=== PATIENT | female | born 1975 | race Caucasian/White ===

== ENCOUNTER 2016-06-12 13:43 | Emergency (ER) | payer OTHER ==
[2016-06-12] MEDS ORDERED: NORMAL SALINE 10 ML SYRINGE FLUSH IVP PRN (13:57)
--- NOTE | 2016-06-12 14:09 | EKG ---
[address] [address] Measurements Intervals [place] Rate: 84 P: -6 RI: 155 QRS: 33 QRSD: 88 T: 38 QT: 380 QTc: 421 Interpretive Statements SINUS RHYTHM LOW QRS VOLTAGE IN PRECORDIAL LEADS No previous ECG available for comparison Electronically Signed On 06-12-16 16:51:46 MDT by Jason Gar [email or web address]
[2016-06-12 14:10] VITALS: RESP 16; TEMP 97.6
[2016-06-12 14:12] LABS: BASOPHILS # (AUTO) 0.02 10*3/UL; BASOPHILS % (AUTO) 0.3 % (0-1); EOSINOPHILS # (AUTO) 0.11 10*3/UL; EOSINOPHILS % (AUTO) 1.6 % (0-8); HEMATOCRIT 42.4 % (37.0-47.0); LYMPHOCYTES # (AUTO) 2.34 10*3/uL; MEAN CORPUSCULAR VOLUME 93.8 FL (81-99); MEAN PLATELET VOLUME 8.9 FL (7.4-12.2); MONOCYTES # (AUTO) 0.58 10*3/UL (0.3-0.8); MONOCYTES % (AUTO) 8.6 % (5-15); NEUTROPHILS # (AUTO) 3.67 10*3/UL; NEUTROPHILS % (AUTO) 54.6 % (50-80); RED BLOOD COUNT 4.52 10^6/uL (4.20-5.40)
[2016-06-12 14:16] LABS: PLATELET MORPHOLOGY COMMENT NORMAL MORPHOLOGY (NORM); RBC MORPHOLOGY COMMENT NORMAL MORPHOLOGY (NORM); WBC MORPHOLOGY COMMENT NORMAL MORPHOLOGY (NORM)
[2016-06-12 14:21] LABS: BLOOD UREA NITROGEN 14 mg/dL (7-22); CALCIUM 8.4 mg/dL (8.7-10.7); EST GLOMERULAR FILTRATION > 60 (>60 ml/min/1.73m(2)); MAGNESIUM 1.5 mg/dL (1.6-2.4); SERUM ALBUMIN 4.1 g/dL (3.5-4.8)
[2016-06-12] MEDS ORDERED: Magnesium Sulfate 2gm (Premix) 2 GM in Premix 1 BAG IV ONE (14:25)
[2016-06-12] MEDS ORDERED: Sodium Chloride 0.9% 1,000 ML PRIMARY IV ONE (14:27)
--- NOTE | 2016-06-12 14:47 | DI ---
XR CXR 1VW,06/12/2016 1:57 PM: Clinical History: Hypertension and left arm tingling. Previous Exam: January 27, 2016 Findings: A single frontal radiograph of the chest is obtained, and demonstrate clear lungs. The cardiomediasti num and bony thorax are unremarkable. Impression: Normal chest.
--- NOTE | 2016-06-12 23:08 | PDOC ---
General Adult HPI - General Chief Complaint: General Medical Stated Complaint: HIGH BLOOD PRESSURE, ARM TINGLING Date Seen by Provider: 06/12/16 Time Seen by Provider: 13:55 Source: POSITIVE: Patient Exam Limitations: POSITIVE: No limitations Nurse's Notes Reviewed & Considered: Yes - History of Present Illness Initial Comment: The patient is a 41-year-old female who is evaluated in the emergency department with elevated blood pressure. She states that she she was seen at the doctor's office about a week ago and her blood pressure was elevated at that time. She has continue to monitor her blood pressure over the past week and has consistently elevated levels between the 140s to 160s over 90s to 100s. She reports that today she has had onset of some tingling in her left arm and left neck. She denies any current chest pain. She reports that she had just had some sharp intermittent pains in her chest off and on the past week or so. She denies any increase shortness of breath, headache, change in vision or any other associated symptoms. She does have a history of alcohol use however denies any recent heavy use, she did have a couple of drinks a couple of days ago. She had contacted her physician's office and they recommended that she come here for evaluation. Have you received a tetanus shot in the past 10 years?: No - Patient Home Medications Home Medications: Home Medications Bupropion HCl [Wellbutrin Sr] 150 mg ORAL BID tab 03/24/11 Ziprasidone HCl [Geodon] 60 mg PO DAILY 03/24/11 Ibuprofen 800 mg PO QID #120 tab 11/22/14 Carisoprodol [Soma] 350 mg PO TID #30 tab 12/04/14 Multivitamin Tab [Thera Tab] 1 tab PO DAILY tab 07/29/15 Omeprazole 1 tab PO DAILY tab 08/07/15 Estradiol 1 tab PO DAILY #30 tab 04/06/16 Lisinopril 10 mg PO DAILY #30 tab 06/12/16 - Patient Allergies Allergies/Adverse Reactions: Allergies Allergy/AdvReac Type Severity Reaction Status Date / Time No Known Allergies Allergy Verified 06/12/16 13:52 Past Medical History - heen HEENT History: Denies History Cardiovascular History: Denies History Respiratory History: Denies History Gastrointestinal History: GERD Genitourinary History: Denies History Endocrine History: Denies History Musculoskeletal History: Denies History Prosthesis or Implant: No Neurological History: Denies History Blood Disorders: Denies History Psychiatric History: Depression, Anxiety Disorders History of Sexually Transmitted Diseases: No Female Reproductive History: Hysterectomy Obstetrical History: Delivery Cancer History: Other (please comment) In Past Year Been Physically Harmed or Verbally Threatened: No History of MDRO: No History of Other Communicable Diseases: No Tobacco Use: Current Every Day Smoker Alcohol Use: Occasionally Substance Use Type: None Previous Surgical History: Yes Type / Date of Surgery: LEEP, Tonsillectomy, Cholecystectomy, abdominal laproscopic, , TOTAL HYST Significant Family History: No pertinent family hx Past Medical History Reviewed: Reviewed - No Changes ROS - Limitations ROS Limitations: No Limitations Constitution: DENIES: Chills, Fever Cardiovascular: REPORTS: Chest Pain (Some intermittent sharp chest pains over the past week), Blood Pressure Problem (Elevated that pressure for at least the last week). DENIES: Edema Respiratory: DENIES: Hurts To Breathe, Shortness Of Breath Neurological: REPORTS: Tingling (Left arm). DENIES: Dizziness, Numbness, Fainting Gastrointestinal: DENIES: Nausea, Vomitting Eyes: REPORTS: Denies Symptoms ENT: REPORTS: Denies Symptoms Skin: DENIES: Rash General Adult Exam - General Appearance General Appearance: POSITIVE: Alert, Cooperative, No Acute Distress - HEENT HEENT: POSITIVE: Head Inspection Nml, Eyes Inspection Nml, Ears Inspection Nml, Pharynx Inspect. Nml, PERRL, EOMI - Neck Neck: POSITIVE: Normal Inspection. NEGATIVE: Lymphadenopathy - Respiratory Respiratory: POSITIVE: No Respiratory Distress, Breath Sounds Normal - Cardiovascular Cardiovascular: POSITIVE: Regular Rate & Rhythm, No Murmur Peripheral Pulses: Dorsalis-pedis (R): 2+, Dorsalis-pedis (L): 2+ - Abdomen Abdomen: Soft: (All Quadrants), Denies Tenderness: (All Quadrants), No Distention: (All Quadrants), Distention: (All Quadrants) - Skin Skin: POSITIVE: Normal Color General Adult Progress - Results Reviewed by me Xrays/CTs/US Reviewed by me: Yes Discussed with Radiologist: Yes Radiology Findings: Chest x-ray is normal per radiologist. Lab Results Reviewed: Yes Lab Results:: Laboratory Results 06/12/16 Range/Units 14:02 WBC 6.73 (4.8-10.8) 10^3/uL RBC 4.52 (4.20-5.40) 10^6/uL Hgb 14.0 (12.0-16.0) g/dL Hct 42.4 (37.0-47.0) % MCV 93.8 (81-99) FL MCH 31.0 (27-31) PG MCHC 33.0 (33-37) g/dL RDW Std Deviation 46.6 (39-50) fL RDW Coeff of Armond 14.1 (11.5-14.5) % Plt Count 212 (140-350) 10*3/uL MPV 8.9 (7.4-12.2) FL Immature Gran % (Auto) 0.1 (0-5) % Neut % (Auto) 54.6 (50-80) % Lymph % (Auto) 34.8 (10-50) % [place] % (Auto) 8.6 (5-15) % Eos % (Auto) 1.6 (0-8) % Baso % (Auto) 0.3 (0-1) % Immature Gran # (Auto) 0.01 10*3/UL Neut # (Auto) 3.67 10*3/UL Lymph # (Auto) 2.34 10*3/uL [place] # (Auto) 0.58 (0.3-0.8) 10*3/UL Eos # (Auto) 0.11 10*3/UL Baso # (Auto) 0.02 10*3/UL WBC Morphology Comment Normal morphology (NORM) Plt Morphology Comment Normal morphology (NORM) RBC Morph Comment Normal morphology (NORM) D-Dimer 0.35 (0.00-0.59) mg/L Sodium 138 (135-145) meq/L Potassium 4.8 (3.8-5.2) meq/L Chloride 104 (98-112) meq/L Carbon Dioxide 24 (23-33) meq/L Anion Gap 10 (5-20) BUN 14 (7-22) mg/dL Creatinine 0.8 (0.50-1.20) mg/dL Estimated GFR > 60 (>60 ml/min/1.73m(2)) BUN/Creatinine Ratio 17.50 (6-20) Glucose 94 (78-110) mg/dL Calculated Osmolality 286.0 (267-292) mOsm/kg Calcium 8.4 L (8.7-10.7) mg/dL Magnesium 1.5 L (1.6-2.4) mg/dL Total Bilirubin 0.7 (0.3-1.2) mg/dL AST 55 H (8-39) IU/L ALT 44 (9-52) IU/L Alkaline Phosphatase 73 (38-126) IU/L Troponin I < 0.012 (< 0.040) ng/mL Total Protein 7.1 (6.1-8.0) g/dL Albumin 4.1 (3.5-4.8) g/dL Globulin 3.0 (2.50-4.10) g/dL Albumin/Globulin Ratio 1.30 (1.3-2.0) mg/g EKG Interpreted/Reviewed By Me:: Yes EKG Interpretation:: POSITIVE: Normal Sinus Rhythm, Normal Rate, Normal Intervals, Normal QRS, Normal ST/T - Patient's Progress MDM / ED Course: The patient's initial blood pressure was in the 160s over 109. Her initial EKG shows normal sinus rhythm with no acute changes. Blood work was obtained and did reveal a low magnesium at 1.5. She did receive an infusion of magnesium 2 g IV. Blood pressure during magnesium infusion had come down into the 140s over 80s. The remainder of her blood work including d-dimer and troponin were normal. Her kidney function and other electrolytes were normal. Her blood pressure has been consistently elevated recently. She was started on lisinopril 10 mg daily. She will continue to monitor blood pressure and will follow-up with primary care in 1 week. She is advised return to the emergency room if any worsening or change in symptoms especially any chest pain, shortness of breath, headache, numbness or weakness in her extremities, any worsening or change in symptoms. - Consult Counseled: POSITIVE: Patient, RE: Lab Results, RE: Radiology Results, RE: DX, RE : Need for F/U Patient Care Time - Estimated PCT Patient Care Time (In Minutes): 30 Vital Signs - VS Reviewed Vital Signs Reviewed: Yes Discharge Clinical Impression: Hypomagnesemia, HTN (hypertension) Discharge Disposition: Discharged to Home Condition: Stable Prescriptions / Orders: Lisinopril 10 mg PO DAILY #30 tab Additional Instructions: The EKG on your heart appeared normal here in the emergency room. Your blood work did not reveal any evidence of heart attack or blood clot. Her magnesium level was a little bit low and this was replaced why you're here in the emergency room. Her blood pressure was elevated on arrival and came down after administration of magnesium. Because her blood pressure has been elevated consistently recently you were started on a blood pressure medication. Start lisinopril 10 mg daily, can be taken either at night or in the morning. Recommend returning to the emergency room if he develops any chest pain, shortness of breath, any worsening or change in symptoms. Recommend that you follow-up with your primary care provider in one week. Follow Up With: JONO GÓMEZ FNP [Primary Care Provider] -
== END 2016-06-12 15:40 | disposition home or self-care (01) ==
LOC: ER 13:43
DX: E83.42 Hypomagnesemia (principal); I10 Essential (primary) hypertension; R07.9 Chest pain, unspecified; R20.2 Paresthesia of skin
CPT/HCPCS: 71010; 80053; 83735; 84484; 85025; 85379; 93005; 93010; 96365; 99284; J3475

== ENCOUNTER → 2016-07-16 | Outpatient (CLI) | payer OTHER | LOC: LAB 14:40 | PROVIDERS: ATTEND Nurse Practitioner Family | DX: E83.42 Hypomagnesemia (principal); I10 Essential (primary) hypertension | CPT/HCPCS: 36415; 83735 ==

== ENCOUNTER 2018-04-30 18:18 | Inpatient (IN) ==
[2018-04-30] MEDS ORDERED: Sodium Chloride 0.9% 1,000 ML PRIMARY IV ONE (18:28)
[2018-04-30] MEDS ORDERED: MORPHINE SULFATE 2 MG/1 ML IVP ONE (18:28)
[2018-04-30] MEDS ORDERED: FAMOTIDINE 20 MG/2 ML VIAL IVP ONE (18:28)
[2018-04-30] MEDS ORDERED: ONDANSETRON 4 MG/2 ML VIAL IVP ONE (18:28)
[2018-04-30] MEDS ORDERED: LORazepam 2 MG/1 ML VIAL IVP ONE (18:29)
[2018-04-30 18:34] LABS: BASOPHILS # (AUTO) 0.03 10*3/UL; BASOPHILS % (AUTO) 0.3 % (0-1); EOSINOPHILS # (AUTO) 0.05 10*3/UL; EOSINOPHILS % (AUTO) 0.5 % (0-8); Hematocrit [HCT] 39.5 % (37.0-47.0); Hemoglobin [HGB] 14.5 g/dL (12.0-16.0); LYMPHOCYTES # (AUTO) 1.55 10*3/uL; MEAN CORPUSCULAR HEMOGLOBIN 34.6 PG (27-31); MEAN CORPUSCULAR HGB CONC 36.7 g/dL (33-37); MEAN CORPUSCULAR VOLUME 94.3 FL (81-99); MEAN PLATELET VOLUME 8.8 FL (7.4-12.2); MONOCYTES # (AUTO) 1.02 10*3/UL (0.3-0.8); MONOCYTES % (AUTO) 9.4 % (5-15); NEUTROPHILS # (AUTO) 8.23 10*3/UL; NEUTROPHILS % (AUTO) 75.5 % (50-80); RED BLOOD COUNT 4.19 10^6/uL (4.20-5.40)
[2018-04-30 18:35] LABS: PLATELET MORPHOLOGY COMMENT NORMAL MORPHOLOGY (NORM); RBC MORPHOLOGY COMMENT NORMAL MORPHOLOGY (NORM); WBC MORPHOLOGY COMMENT NORMAL MORPHOLOGY (NORM)
[2018-04-30 18:54] LABS: BLOOD UREA NITROGEN 14 mg/dL (7-22)
[2018-04-30 18:56] LABS: SERUM ALBUMIN 3.7 g/dL (3.5-4.8)
[2018-04-30] MEDS ORDERED: Sodium Chloride 0.9% 1,000 ML, Magnesium Sulfate 2gm (Premix) 50 ML with Multivitamin I... IV ONE ×5 (18:58)
[2018-04-30 19:12] LABS: LIPASE 4090 IU/L (23-300)
[2018-04-30 19:13] LABS: BILIRUBIN,URINE NEGATIVE (NEG); CLARITY,URINE CLEAR (CLEAR); COLOR,URINE YELLOW (Y); GLUCOSE, URINE (UA) NEGATIVE (NEG); OCCULT BLOOD,URINE NEGATIVE (NEG); PH,URINE 5.5 (5.0-8.5); PROTEIN,URINE TRACE mg/dl (NEG); UROBILINOGEN,URINE 0.2 EU/dL (0.2)
[2018-04-30 19:14] LABS: URINE SAMPLE TYPE CLEAN CATCH URINE
[2018-04-30] MEDS ORDERED: MORPHINE SULFATE 4 MG/1 ML IVP ONE (20:28)
--- NOTE | 2018-04-30 20:28 | DI ---
EXAM: CT Abdomen and Pelvis With Intravenous Contrast CLINICAL HISTORY: Pain TECHNIQUE: Axial computed tomography images of the abdomen and pelvis with intravenous contrast. COMPARISON: CT abdomen and pelvis dated 07/27/2015 FINDINGS: Lung bases: Lower thorax demonstrates atelectasis and or scarring. ABDOMEN: Liver: Decreased attenuation of the liver suggesting hepatic steatosis. Gallbladder and bile ducts: Gallbladder is surgically absent. Pancreas: Pancreatic and peripancreatic edema suggesting acute pancreatitis. Spleen: Unremarkable. Adrenals: Unremarkable. Kidneys and ureters: Unremarkable. Stomach and bowel: Unremarkable. PELVIS: Appendix: Appendix was not visualized. Bladder: Unremarkable. Reproductive: Unremarkable as visualized. ABDOMEN and PELVIS: Intraperitoneal space: Free fluid within the lower abdomen and pelvis. Bones/joints: No acute fracture. No dislocation. Soft tissues: Unremarkable. Vasculature: Unremarkable. No abdominal aortic aneurysm. Lymph nodes: Unremarkable. IMPRESSION: Pancreatic and peripancreatic edema suggesting acute pancreatitis. No pancreatic necrosis, pseudocyst, pseudoaneurysm, or splenic vein thrombosis.
[2018-04-30] MEDS ORDERED: LIDOCAINE W/ SODIUM BICARB 0.5 ML SYR SUBD PRN (21:00)
[2018-04-30] MEDS ORDERED: LORazepam Inj(ETOH withdrawal) 2 MG/ML VIAL IVP PRN (21:00)
[2018-04-30] MEDS ORDERED: LORazepam 1 mg tab (ETOH withdrawal) PO PRN (21:00)
[2018-04-30] MEDS ORDERED: ONDANSETRON 4 MG/2 ML VIAL IVP PRN (21:00)
[2018-04-30] MEDS ORDERED: CALCIUM CARBONATE 500 MG (TUMS) CHEWABLE TABLET PO PRN (21:00)
[2018-04-30] MEDS ORDERED: DOCUSATE 100 MG CAPSULE PO PRN (21:00)
[2018-04-30] MEDS: ACETAMINOPHEN 325 MG TABLET PO PRN (21:44)
[2018-04-30 22:01] LABS: CHOL/HDL RATIO 2.32 RATIO (0-4.0)
--- NOTE | 2018-04-30 22:02 | PDOC ---
HPI - History of Present Illness Date of Service: 04/30/18 Time of Service: 21:57 Chief Complaint: Abdominal pain History of Present Illness: This very pleasant 43-year-old female that suffers from depression, post medics stress disorder, chronic neck pain, hormone replacement therapy status post total abdominal hysterectomy with ovarian removal as well due to endometriosis, amongst other medical conditions, who comes in stating that she developed sudden onset abdominal pain earlier this morning. She mostly isolates that in her midabdomen. She says is been very severe, did not respond to Pepto-Bismol, Gas- X, or Motrin. She states that she had a similar episode a couple of years ago. It was not quite as bad at that point. She denies any nausea or vomiting. She denied any diarrhea. She came into the emergency room and a CT scan showed pancreatic edema consistent with acute pancreatitis. Notably, she is on estrogen. She drinks alcohol, upwards of 10 shots per week. She has had her gallbladder removed. She does not know her cholesterol status. She states she's had chills, but no fever. She states her last alcoholic beverage was last night. Her blood alcohol level was negative in the emergency room. Past Medical History Medical History: Depression, chronic alcohol use, tremor, chronic neck pain secondary to an accident at age 15, endometriosis, hormone replacement therapy Surgical History: 1. Total abdominal hysterectomy with bilateral salpingo- oophorectomy. 2. Cholecystectomy Pertinent Family History: Mother due to COPD complications. Past Social History: Patient does not smoke. She drinks alcohol, admits up to 10 shots per week. 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 She has 3 children and sees biologic) that are healthy and 2 stepchildren. Tobacco Use: Never Smoker In the Past 12 Months, Have Used or Abuse Any of the Following Substance: None Alcohol Use: Heavy Medication / Allergies Home Medications: Home Medications Medication Instructions Recorded Confirmed Type Bupropion HCl [Wellbutrin Sr] 150 mg ORAL BID tab 03/24/11 04/30/18 History Multivitamin Tab [Thera Tab] 1 tab PO DAILY tab 07/29/15 04/30/18 Rx Omeprazole 1 tab PO DAILY tab 08/07/15 04/30/18 History Ibuprofen 800 mg PO QID #120 tab 06/18/16 04/30/18 Rx Magnesium 400 mg PO PRN tab 07/21/16 04/30/18 History Ziprasidone HCl [Geodon] 60 mg PO DAILY cap 07/21/16 04/30/18 History carisoprodol 350 mg tablet 350 mg PO TID #30 tab 06/02/17 04/30/18 Rx estradiol 0.5 mg tablet 0.5 mg PO DAILY #90 tab 10/22/17 04/30/18 Rx losartan 100 mg tablet 100 mg PO QDAY #30 tab 11/22/17 04/30/18 Rx Propranolol HCl 20 mg PO DAILY 04/30/18 04/30/18 History Allergies/Adverse Reactions: Allergies Allergy/AdvReac Type Severity Reaction Status Date / Time No Known Allergies Allergy Verified 04/30/18 18:45 Review of Systems - Review of Systems All Systems: Reviewed & No Additional Complaints Except as Stated (I did a 12 point review systems and it was negative other than that discussed below and in the history of present illness.) - Musculoskeletal Musculoskeletal: REPORTS: Neck Pain (Gets regular chiropractic therapy. This is chronic. She has had x-rays in the chiropractic office. States she had MRI scan in [place] in over a decade ago but does not recall results.) - Neurological Neurologic: REPORTS: Tremors (Chronic bilateral tremors of unclear etiology), O ther - Psychiatric Psychiatric: REPORTS: Depressed (States she has done well on Geodon therapy. This is despite black box warnings. Although she is younger than typical age at Geodon carries his black box warning for.) Exam - Vitals Vital Signs: Vital Signs Temperature 98.7 F Temperature Source Oral Pulse Rate [Pulse Oximeter 82 Left] Pulse Rate 89 Respiratory Rate 20 Blood Pressure [Right Arm] 148/85 Blood Pressure 147/77 Pulse Ox 92 Oxygen Delivery Method Room Air Height 5 ft 2 in Weight 183 lb - General General Appearance: No Acute Distress, Cooperative - Head Head Exam: Normal Inspection, Normocephalic, Atraumatic - Eye Eye Exam: POSITIVE: No Scleral Icterus - ENT ENT Exam: POSITIVE: Mucous Membranes Moist - Respiratory Respiratory Exam: POSITIVE: Clear to Auscultation - Bilaterally, Breathing Non Labored, Normal to Percussion and Palpation - Cardiovascular Cardiovascular Exam: POSITIVE: RRR, No Murmur, No Clicks, No Gallops, No Rubs, No JVD - GI/Abdominal GI/Abdominal Exam: POSITIVE: Normal Bowel Sounds, Non Distended, Soft Additional GI/Abdominal Exam Details: Tender mid abdomen. - Rectal Rectal Exam: POSITIVE: Deferred - External Exam: POSITIVE: Deferred Exam: POSITIVE: Deferred - Extremities Extremities Exam: POSITIVE: No Clubbing Present, No Edema Present, No Cyanosis Present - Back Back Exam: POSITIVE: No CVA Tenderness - Neurological Neurological Exam: POSITIVE: Alert, Oriented x 3, No Facial Droop, Speech Intact / Clear, Moves All Extremities Equally - Psychiatric Psychiatric Exam: POSITIVE: Flat Affect Results - Labs CBC and BMP: 04/30/18 18:28 04/30/18 18:28 Additional Lab Results: Laboratory Results 3 04/30/18 04/30/18 04/30/18 18:28 18:28 18:28 WBC 10.89 H RBC 4.19 L Hgb 14.5 Hct 39.5 MCV 94.3 MCH 34.6 H MCHC 36.7 RDW Std Deviation 41.9 RDW Coeff of Armond 12.4 Plt Count 366 H MPV 8.8 Immature Gran % (Auto) 0.1 Neut % (Auto) 75.5 Lymph % (Auto) 14.2 [place] % (Auto) 9.4 Eos % (Auto) 0.5 Baso % (Auto) 0.3 Immature Gran # (Auto) 0.01 Neut # (Auto) 8.23 Lymph # (Auto) 1.55 [place] # (Auto) 1.02 H Eos # (Auto) 0.05 Baso # (Auto) 0.03 WBC Morphology Comment Normal morphology Plt Morphology Comment Normal morphology RBC Morph Comment Normal morphology Sodium 136 Potassium 4.3 Chloride 99 Carbon Dioxide 28 Anion Gap 9 BUN 14 Creatinine 0.8 Estimated GFR > 60 BUN/Creatinine Ratio 17.50 Glucose 103 Calculated Osmolality 282.0 Calcium 8.5 L Magnesium 0.5 L* Total Bilirubin 0.9 AST 72 H ALT 33 Alkaline Phosphatase 98 C-Reactive Protein 1.0 H Total Protein 6.6 Albumin 3.7 Globulin 2.9 Albumin/Globulin Ratio 1.20 L Amylase 295 H Lipase 4090 H* Ur Collection Type Urine Color Urine Clarity Urine pH Ur Specific [place] Urine Protein Urine Glucose (UA) Urine Ketones Urine Occult Blood Urine Nitrate Urine Bilirubin Urine Urobilinogen Ur Leukocyte Esterase Ur Culture Indicated? Serum Alcohol < 10 04/30/18 19:02 WBC RBC Hgb Hct MCV MCH MCHC RDW Std Deviation RDW Coeff of Armond Plt Count MPV Immature Gran % (Auto) Neut % (Auto) Lymph % (Auto) [place] % (Auto) Eos % (Auto) Baso % (Auto) Immature Gran # (Auto) Neut # (Auto) Lymph # (Auto) [place] # (Auto) Eos # (Auto) Baso # (Auto) WBC Morphology Comment Plt Morphology Comment RBC Morph Comment Sodium Potassium Chloride Carbon Dioxide Anion Gap BUN Creatinine Estimated GFR BUN/Creatinine Ratio Glucose Calculated Osmolality Calcium Magnesium Total Bilirubin AST ALT Alkaline Phosphatase C-Reactive Protein Total Protein Albumin Globulin Albumin/Globulin Ratio Amylase Lipase Ur Collection Type Clean catch urine Urine Color Yellow Urine Clarity Clear Urine pH 5.5 Ur Specific [place] 1.025 Urine Protein Trace Urine Glucose (UA) Negative Urine Ketones Negative Urine Occult Blood Negative Urine Nitrate Negative Urine Bilirubin Negative Urine Urobilinogen 0.2 Ur Leukocyte Esterase Negative Ur Culture Indicated? Culture not set Serum Alcohol - Imaging Status: Image Reviewed by Me (CT scan of the abdomen and pelvis was done. I looked at the films. There appears to be some pancreatic inflammation. I reviewed the radiology report) Assessment and Plan - Patient Problems (1) Acute pancreatitis Current Visit: Yes Status: Acute Code(s): K85.90 - Acute pancreatitis without necrosis or infection, unspecified Qualifiers: Pancreatitis type: unspecified pancreatitis type Acute pancreatitis compli cation: no infection or necrosis Qualified Code(s): K85.90 - Acute pancreatitis without necrosis or infection, unspecified (2) Chronic neck pain Current Visit: Yes Status: Acute Code(s): M54.2 - Cervicalgia; G89.29 - Other chronic pain (3) Depression Current Visit: Yes Status: Chronic Code(s): F32.9 - Major depressive disorder, single episode, unspecified Qualifiers: Depression Type: other depression Qualified Code(s): F32.89 - Other specified depressive episodes (4) Alcoholism Current Visit: Yes Status: Acute Code(s): F10.20 - Alcohol dependence, uncomplicated (5) Tremor Current Visit: Yes Status: Acute Code(s): R25.1 - Tremor, unspecified - Assessment / Plan Additional Assessment/Plan Details: admit the patient IV narcotics and antiemetics NPO, and I will hold off on ice chips tonight. The etiology may be interesting here. History suggests alcohol, but estrogen is a known cause of pancreatitis in some cases as well. Could be multifactorial in this regard. I will also check lipids. Triglycerides could be an issue. check IgE level check lipase in AM check lipids LDH level now I will go ahead and order x-rays of the neck given the chronic neck pain without x-rays on file here. In addition I will order an MRI scan of the neck on Wednesday. There is nothing to suggest common bile duct obstruction at this point, so I will hold off on an abdominal MRI scan. Plan above discussed with patient, she agreed with the plan for acute pancreatitis. Discussed and presents with her sister and her questions were answered as well.
[2018-04-30] MEDS ORDERED: Magnesium Sulfate 4gm (Premix) 4 GM/100 ML BAG IV ONE (22:08)
[2018-04-30] MEDS: ChlordiazePOXIDE 25mg Cap (ETOH withdrawal) PO SCH (22:11)
[2018-04-30] MEDS: Sodium Chloride 0.9% 1,000 ML PRIMARY IV SCH (22:11)
[2018-04-30] MEDS: BuPROPion SR Tab 150 MG TAB PO SCH (22:14)
[2018-04-30] MEDS: HYDROmorphone 2 MG/1 ML IVP PRN (22:37)
--- NOTE | 2018-04-30 22:50 | PDOC ---
Abdomen/Flank HPI - General Chief Complaint: Abdomen Pain Stated Complaint: LOWER ABD PAIN Date Seen by Provider: 04/30/18 Time Seen by Provider: 18:20 Source: POSITIVE: Patient Exam Limitations: POSITIVE: No limitations Nurse's Notes Reviewed & Considered: Yes - History of Present Illness Initial Comments: The patient is a 43-year-old female who presents to the emergency department with complaints of abdominal pain. She states that she had onset of abdominal pain this morning which has progressively worsened. She currently rates her pain at nearly a 10 out of 10. She has associated dry heaves however has not had any vomiting. She denies any recent change in bowel movements. She has had some subjective chills without fever. She has had previous cholecystectomy and complete hysterectomy. She does have a history of alcohol abuse and states that she has not been drinking as much since her significant other was incarcerated in January. She states that she last had a shot last night. She is not clear as to how much she has been drinking recently. She does have a previous history of pancreatitis for which she was admitted in 2016. - Patient Home Medications Home Medications: Home Medications Bupropion HCl [Wellbutrin Sr] 150 mg ORAL BID tab 03/24/11 Multivitamin Tab [Thera Tab] 1 tab PO DAILY tab 07/29/15 Omeprazole 1 tab PO DAILY tab 08/07/15 Ibuprofen 800 mg PO QID #120 tab 06/18/16 Magnesium 400 mg PO PRN tab 07/21/16 Ziprasidone HCl [Geodon] 60 mg PO DAILY cap 07/21/16 carisoprodol 350 mg tablet 350 mg PO TID #30 tab 06/02/17 estradiol 0.5 mg tablet 0.5 mg PO DAILY #90 tab 10/22/17 losartan 100 mg tablet 100 mg PO QDAY #30 tab 11/22/17 Propranolol HCl 20 mg PO DAILY 04/30/18 - Patient Allergies Allergies/Adverse Reactions: Allergies Allergy/AdvReac Type Severity Reaction Status Date / Time No Known Allergies Allergy Verified 04/30/18 18:45 Past Medical History - heen HEENT History: Denies History Cardiovascular History: Hypertension Respiratory History: Denies History Gastrointestinal History: GERD Genitourinary History: Denies History Endocrine History: Denies History Musculoskeletal History: Denies History Prosthesis or Implant: No Neurological History: Other (please comment) Additional Neurological History: TREMORS Blood Disorders: Denies History Psychiatric History: Depression, Anxiety Disorders History of Sexually Transmitted Diseases: No Female Reproductive History: Hysterectomy Obstetrical History: Delivery Cancer History: Other (please comment) In Past Year Been Physically Harmed or Verbally Threatened: No History of MDRO: No History of Other Communicable Diseases: No Tobacco Use: Never Smoker Alcohol Use: Occasionally In the Past 12 Months, Have Used or Abuse Any Substance: None Previous Surgical History: Yes Type / Date of Surgery: LEEP, Tonsillectomy, Cholecystectomy, abdominal laproscopic, , TOTAL HYST Significant Family History: No pertinent family hx Past Medical History Reviewed: Reviewed - No Changes ROS - Limitations ROS Limitations: No Limitations Constitution: REPORTS: Chills. DENIES: Fever Cardiovascular: REPORTS: Denies Cardiac Symptoms Respiratory: REPORTS: Denies Resp Symptoms Neurological: REPORTS: Denies Neuro Symptoms, Other Gastrointestinal: REPORTS: Abdominal Pain, Nausea. DENIES: Vomitting, Diarrhea, Black Stools, Bloody Stools, Constipation Endocrine: REPORTS: Denies Symptoms Musculoskeletal: REPORTS: Denies MS Symptoms Genitourinary: REPORTS: Denies Symptoms Eyes: REPORTS: Denies Symptoms ENT: REPORTS: Denies Symptoms Skin: DENIES: Rash Abdominal/Flank Pain PE - General Appearance General Appearance: POSITIVE: Alert, Cooperative, No Acute Distress, Other (The patient does appear shaky) - HEENT HEENT: POSITIVE: Head Inspection Nml, Eyes Inspection Nml, Ears Inspection Nml, Dry Mucous Membranes - Neck Neck: POSITIVE: Normal Inspection. NEGATIVE: Lymphadenopathy - Respiratory Respiratory: POSITIVE: No Respiratory Distress, Breath Sounds Normal - Cardiovascular Cardiovascular: POSITIVE: Regular Rate and Rhythm, Heart Sounds Normal Peripheral Pulses: Dorsalis-pedis (R): 2+, Dorsalis-pedis (L): 2+ - Abdomen Abdomen: Soft: (All Quadrants), Normal Bowel Sounds: (All Quadrants), No Guarding: (All Quadrants) Additional Abdominal Details: She does have some generalized abdominal tenderness which seems most prominent in the left lower quadrant, she does have some mild rebound tenderness, no CVA tenderness, no palpable mass - Skin Skin: POSITIVE: Intact, No Rash - Extremities Extremity: Normal ROM: (All Extremities), Normal Inspection: (All Extremities) - Neurological Neurological: POSITIVE: Oriented X3, 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 Lab Results Reviewed by Me: Yes CBC and BMP: 04/30/18 18:28 04/30/18 18:28 Lab Results:: Laboratory Results 04/30/18 04/30/18 04/30/18 18:28 18:28 18:28 WBC 10.89 H RBC 4.19 L Hgb 14.5 Hct 39.5 MCV 94.3 MCH 34.6 H MCHC 36.7 RDW Std Deviation 41.9 RDW Coeff of Armond 12.4 Plt Count 366 H MPV 8.8 Immature Gran % (Auto) 0.1 Neut % (Auto) 75.5 Lymph % (Auto) 14.2 Dubois % (Auto) 9.4 Eos % (Auto) 0.5 Baso % (Auto) 0.3 Immature Gran # (Auto) 0.01 Neut # (Auto) 8.23 Lymph # (Auto) 1.55 Dubois # (Auto) 1.02 H Eos # (Auto) 0.05 Baso # (Auto) 0.03 WBC Morphology Comment Normal morphology Plt Morphology Comment Normal morphology RBC Morph Comment Normal morphology Sodium 136 Potassium 4.3 Chloride 99 Carbon Dioxide 28 Anion Gap 9 BUN 14 Creatinine 0.8 Estimated GFR > 60 BUN/Creatinine Ratio 17.50 Glucose 103 Calculated Osmolality 282.0 Calcium 8.5 L Magnesium 0.5 L* Total Bilirubin 0.9 AST 72 H ALT 33 Alkaline Phosphatase 98 Lactate Dehydrogenase C-Reactive Protein 1.0 H Total Protein 6.6 Albumin 3.7 Globulin 2.9 Albumin/Globulin Ratio 1.20 L Triglycerides Cholesterol LDL Cholesterol, Calc VLDL Cholesterol HDL Cholesterol Cholesterol/HDL Ratio Amylase 295 H Lipase 4090 H* TSH Free T4 Ur Collection Type Urine Color Urine Clarity Urine pH Ur Specific Alpha Urine Protein Urine Glucose (UA) Urine Ketones Urine Occult Blood Urine Nitrate Urine Bilirubin Urine Urobilinogen Ur Leukocyte Esterase Ur Culture Indicated? Serum Alcohol < 10 04/30/18 04/30/18 04/30/18 18:28 18:28 18:28 WBC RBC Hgb Hct MCV MCH MCHC RDW Std Deviation RDW Coeff of Armond Plt Count MPV Immature Gran % (Auto) Neut % (Auto) Lymph % (Auto) Dubois % (Auto) Eos % (Auto) Baso % (Auto) Immature Gran # (Auto) Neut # (Auto) Lymph # (Auto) Dubois # (Auto) Eos # (Auto) Baso # (Auto) WBC Morphology Comment Plt Morphology Comment RBC Morph Comment Sodium Potassium Chloride Carbon Dioxide Anion Gap BUN Creatinine Estimated GFR BUN/Creatinine Ratio Glucose Calculated Osmolality Calcium Magnesium Total Bilirubin AST ALT Alkaline Phosphatase Lactate Dehydrogenase 1081 H C-Reactive Protein Total Protein Albumin Globulin Albumin/Globulin Ratio Triglycerides 463 H Cholesterol 144 LDL Cholesterol, Calc -10.600 VLDL Cholesterol 92 H HDL Cholesterol 62 Cholesterol/HDL Ratio 2.32 Amylase Lipase TSH 3.63 Free T4 1.26 Ur Collection Type Urine Color Urine Clarity Urine pH Ur Specific Alpha Urine Protein Urine Glucose (UA) Urine Ketones Urine Occult Blood Urine Nitrate Urine Bilirubin Urine Urobilinogen Ur Leukocyte Esterase Ur Culture Indicated? Serum Alcohol 04/30/18 19:02 WBC RBC Hgb Hct MCV MCH MCHC RDW Std Deviation RDW Coeff of Armond Plt Count MPV Immature Gran % (Auto) Neut % (Auto) Lymph % (Auto) Dubois % (Auto) Eos % (Auto) Baso % (Auto) Immature Gran # (Auto) Neut # (Auto) Lymph # (Auto) Dubois # (Auto) Eos # (Auto) Baso # (Auto) WBC Morphology Comment Plt Morphology Comment RBC Morph Comment Sodium Potassium Chloride Carbon Dioxide Anion Gap BUN Creatinine Estimated GFR BUN/Creatinine Ratio Glucose Calculated Osmolality Calcium Magnesium Total Bilirubin AST ALT Alkaline Phosphatase Lactate Dehydrogenase C-Reactive Protein Total Protein Albumin Globulin Albumin/Globulin Ratio Triglycerides Cholesterol LDL Cholesterol, Calc VLDL Cholesterol HDL Cholesterol Cholesterol/HDL Ratio Amylase Lipase TSH Free T4 Ur Collection Type Clean catch urine Urine Color Yellow Urine Clarity Clear Urine pH 5.5 Ur Specific Alpha 1.025 Urine Protein Trace Urine Glucose (UA) Negative Urine Ketones Negative Urine Occult Blood Negative Urine Nitrate Negative Urine Bilirubin Negative Urine Urobilinogen 0.2 Ur Leukocyte Esterase Negative Ur Culture Indicated? Culture not set Serum Alcohol - Patient's Progress MDM / ED Course: The patient was rating her pain nearly a 10 out of 10 on arrival. An IV was established and she did receive morphine 2 mg IV and Zofran 4 mg IV. She also appeared shaky and has a history of alcohol abuse. She did receive Ativan 1 mg IV. Initial blood work revealed a mildly elevated white count with a significan tly elevated lipase at 4000. Her magnesium was also very low at 0.5 mg. She did receive a banana bag containing [address] scan of the abdomen and pelvis was obtained which does show inflammatory changes near the pancreas with no other acute findings per radiologist. These findings were discussed with the patient. The patient was also discussed with Dr. Winston who is agreed to admit the patient for further care. - Consult Counseled: POSITIVE: Patient, RE: Lab Results, RE: Radiology Results, RE: DX, RE: Need for F/U Patient Care Time - Estimated PCT Patient Care Time (In Minutes): 30 Vital Signs - Recent Vital Signs Vital Signs: Vital Signs (Last 8 hours) Temp Pulse Resp BP Pulse Ox 04/30/18 18:19 97.8 F 84 17 161/136 98 - VS Reviewed Vital Signs Reviewed: Yes Discharge Clinical Impression: Pancreatitis, Hypomagnesemia, Alcoholism Discharge Disposition: Admit to Inpatient Condition: Stable Date Decision to Admit to Inpatient: 04/30/18 Time Decision to Admit to Inpatient: 20:30
[2018-05-01] MEDS: HYDROmorphone 2 MG/1 ML IVP PRN ×5 (02:32→20:50)
[2018-05-01 04:49] LABS: BASOPHILS # (AUTO) 0.02 10*3/UL; BASOPHILS % (AUTO) 0.2 % (0-1); EOSINOPHILS # (AUTO) 0.09 10*3/UL; Hematocrit [HCT] 36.7 % (37.0-47.0); Hemoglobin [HGB] 13.1 g/dL (12.0-16.0); LYMPHOCYTES # (AUTO) 0.92 10*3/uL; MEAN CORPUSCULAR HEMOGLOBIN 34.5 PG (27-31); MEAN CORPUSCULAR HGB CONC 35.7 g/dL (33-37); MEAN CORPUSCULAR VOLUME 96.6 FL (81-99); MEAN PLATELET VOLUME 9.1 FL (7.4-12.2); MONOCYTES # (AUTO) 0.76 10*3/UL (0.3-0.8); MONOCYTES % (AUTO) 8.1 % (5-15); NEUTROPHILS # (AUTO) 7.62 10*3/UL; NEUTROPHILS % (AUTO) 80.8 % (50-80)
[2018-05-01 04:55] LABS: PLATELET MORPHOLOGY COMMENT NORMAL MORPHOLOGY (NORM); RBC MORPHOLOGY COMMENT NORMAL MORPHOLOGY (NORM); WBC MORPHOLOGY COMMENT NORMAL MORPHOLOGY (NORM)
[2018-05-01 05:05] LABS: BLOOD UREA NITROGEN 9 mg/dL (7-22); SERUM ALBUMIN 2.6 g/dL (3.5-4.8)
[2018-05-01] MEDS: Sodium Chloride 0.9% 1,000 ML PRIMARY IV SCH ×3 (06:29→20:31)
[2018-05-01] MEDS ORDERED: ZIPRASIDONE HCL 60 MG PO SCH (09:00)
[2018-05-01] MEDS: PANTOPRAZOLE IV 40 MG VIAL IVP SCH (09:19)
[2018-05-01] MEDS: Multivitamin Tab 1 TAB PO SCH (09:19)
--- NOTE | 2018-05-01 10:29 | DI ---
CERVICAL SPINE SERIES, 05/01/2018 8:52 AM: Clinical History: Chronic neck pain. Previous Exam: None at this facility. Views: Upright AP and lateral views. Vertebral Bodies: Normal height and size. No compression fractures. Disc Spaces: Normal disc spaces. Alignment: Normal. Uncovertebral Joints: Normal. Zygapophyseal Joints: Normal. Prevertebral Soft Tissues: Normal. Bone Density: Within normal limits for age. Lung: The visualized portions of the apices and lungs are normal. Reading: Normal cervical spine series.
[2018-05-01] MEDS: LOSARTAN 50 MG TABLET PO SCH (12:09)
[2018-05-01] MEDS: ChlordiazePOXIDE 25mg Cap (ETOH withdrawal) PO SCH ×3 (12:09→20:30)
[2018-05-01] MEDS: Propranolol Tab 10 MG TAB PO SCH (12:09)
[2018-05-01] MEDS: BuPROPion SR Tab 150 MG TAB PO SCH ×2 (12:10→20:30)
--- NOTE | 2018-05-01 17:49 | PDOC(PROG) ---
Date of Service: 05/01/18 Time of Service: 17:46 Interval History: Patient seen, evaluated earlier today. No chest pain, shortness breath, nausea or vomiting. Abdominal pain persists but she does have an appetite today. Objective : Data - Labs CBC and BMP: 05/01/18 04:40 05/01/18 04:40 Additional Lab Results: 04/30/18 04/30/18 04/30/18 18:28 18:28 18:28 Magnesium 0.5 L* Lactate Dehydrogenase Triglycerides 463 H Cholesterol 144 VLDL Cholesterol 92 H HDL Cholesterol 62 Lipase 4090 H* TSH 3.63 Free T4 1.26 04/30/18 05/01/18 05/01/18 18:28 04:40 04:40 Magnesium 2.3 Lactate Dehydrogenase 1081 H Triglycerides Cholesterol VLDL Cholesterol HDL Cholesterol Lipase 3862 H* TSH Free T4 Objective : Exam - General General Appearance: No Acute Distress, Cooperative Additional General Exam Details: Vital Signs - Last Taken Temperature 99.3 F 05/01/18 16:25 Pulse Rate 94 05/01/18 16:25 Respiratory Rate 18 05/01/18 16:25 Blood Pressure 151/85 05/01/18 16:25 Pulse Ox 95 05/01/18 16:25 - Eye Eye Exam: No Scleral Icterus - ENT ENT Exam: Mucous Membranes Moist - Neck Neck Exam: JVP is not Raised - Respiratory Respiratory Exam: Clear to Auscultation - Bilaterally, Breathing Non Labored - Cardiovascular Cardiovascular Exam: RRR, No Murmur, No Clicks, No Gallops, No Rubs, No JVD - GI/Abdominal GI/Abdominal Exam: Normal Bowel Sounds, Non Distended, Soft Additional GI/Abdominal Exam Details: Tenderness mid area of the abdomen - Extremities Extremities Exam: No Clubbing Present, No Edema Present, No Cyanosis Present - Neurological Neurological Exam: Alert, Oriented x 3, No Facial Droop, Speech Intact / Clear, Moves All Extremities Equally Assessment and Plan - Patient Problems (1) Acute pancreatitis Current Visit: Yes Status: Acute Code(s): K85.90 - Acute pancreatitis without necrosis or infection, unspecified Qualifiers: Pancreatitis type: unspecified pancreatitis type Acute pancreatitis complication: no infection or necrosis Qualified Code(s): K85.90 - Acute pancreatitis without necrosis or infection, unspecified (2) Chronic neck pain Current Visit: Yes Status: Acute Code(s): M54.2 - Cervicalgia; G89.29 - Other chronic pain (3) Depression Current Visit: Yes Status: Chronic Code(s): F32.9 - Major depressive disorder, single episode, unspecified Qualifiers: Depression Type: other depression Qualified Code(s): F32.89 - Other speci fied depressive episodes (4) Alcoholism Current Visit: Yes Status: Acute Code(s): F10.20 - Alcohol dependence, uncomplicated (5) Tremor Current Visit: Yes Status: Acute Code(s): R25.1 - Tremor, unspecified - Assessment / Plan Additional Assessment/Plan Details: Probably multifactorial pancreatitis, induced by alcohol use, complicated by estrogen use, and then probably by triglycerides. Would probably make a good Lopid candidate but this can also cause acute p ancreatitis would like to wait to start it until this acute episode has calmed down. Pain medications and antiemetics. Advance diet to clear liquids. Labs in a.m. Given chronic neck pain, x-ray was done and that appeared to be a normal cervical x-ray. I have also ordered a neck MRI (cervical MRI) which will be done in the morning.
[2018-05-01] MEDS: ACETAMINOPHEN 325 MG TABLET PO PRN (18:40)
[2018-05-01] MEDS: ZIPRASIDONE HCL 60 MG PO SCH (20:52)
[2018-05-02] MEDS: Sodium Chloride 0.9% 1,000 ML PRIMARY IV SCH ×3 (02:54→17:42)
[2018-05-02 05:04] LABS: BASOPHILS # (AUTO) 0.02 10*3/UL; BASOPHILS % (AUTO) 0.2 % (0-1); EOSINOPHILS # (AUTO) 0.14 10*3/UL; EOSINOPHILS % (AUTO) 1.5 % (0-8); Hemoglobin [HGB] 11.3 g/dL (12.0-16.0); LYMPHOCYTES # (AUTO) 1.39 10*3/uL; MEAN CORPUSCULAR HEMOGLOBIN 32.8 PG (27-31); MEAN CORPUSCULAR HGB CONC 33.2 g/dL (33-37); MEAN CORPUSCULAR VOLUME 98.8 FL (81-99); MEAN PLATELET VOLUME 9.3 FL (7.4-12.2); MONOCYTES # (AUTO) 0.85 10*3/UL (0.3-0.8); MONOCYTES % (AUTO) 8.9 % (5-15); NEUTROPHILS # (AUTO) 7.17 10*3/UL; NEUTROPHILS % (AUTO) 74.8 % (50-80); RED BLOOD COUNT 3.44 10^6/uL (4.20-5.40)
[2018-05-02 05:09] LABS: PLATELET MORPHOLOGY COMMENT NORMAL MORPHOLOGY (NORM); RBC MORPHOLOGY COMMENT NORMAL MORPHOLOGY (NORM); WBC MORPHOLOGY COMMENT NORMAL MORPHOLOGY (NORM)
[2018-05-02 05:11] LABS: BLOOD UREA NITROGEN 8 mg/dL (7-22); BUN/CREATININE RATIO 13.33 (6-20); LIPASE 573 IU/L (23-300); SERUM ALBUMIN 2.3 g/dL (3.5-4.8)
[2018-05-02] MEDS ORDERED: Calcium Gluconate Inj 1,000 MG in Sodium Chloride 0.9% 100 ML IV PRN (05:37)
[2018-05-02] MEDS ORDERED: ChlordiazePOXIDE 25mg Cap (ETOH withdrawal) PO PRN (07:24)
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
[2018-05-02] MEDS: CALCIUM CARBONATE 500 MG (TUMS) CHEWABLE TABLET PO SCH (08:48)
[2018-05-02] MEDS: Propranolol Tab 10 MG TAB PO SCH (08:48)
[2018-05-02] MEDS: Multivitamin Tab 1 TAB PO SCH (08:48)
[2018-05-02] MEDS: LOSARTAN 50 MG TABLET PO SCH (08:48)
[2018-05-02] MEDS: BuPROPion SR Tab 150 MG TAB PO SCH ×2 (08:48→20:29)
[2018-05-02] MEDS: Calcium/Vit D 600mg/400u Tab 1 TAB TABLET PO SCH ×2 (08:48→20:29)
[2018-05-02] MEDS: PANTOPRAZOLE IV 40 MG VIAL IVP SCH (08:48)
[2018-05-02] MEDS ORDERED: Influenza 18-19 Vaccine (6mo+) 60 MCG/0.5 ML SYRINGE IM ONE (09:00)
[2018-05-02] MEDS ORDERED: Magnesium Sulfate 2gm (Premix) 2 GM/50 ML BAG IV ONE (12:05)
[2018-05-02] MEDS ORDERED: SIMETHICONE 80 MG TABLET PO PRN (17:06)
[2018-05-02] MEDS: ZIPRASIDONE HCL 60 MG PO SCH (20:29)
[2018-05-03 04:56] LABS: BLOOD UREA NITROGEN 4 mg/dL (7-22); LIPASE 398 IU/L (23-300); SERUM ALBUMIN 2.4 g/dL (3.5-4.8)
[2018-05-03] MEDS ORDERED: MAGNESIUM OXIDE 400 MG TABLET PO SCH (07:00)
[2018-05-03] MEDS: Multivitamin Tab 1 TAB PO SCH (08:49)
[2018-05-03] MEDS: CALCIUM CARBONATE 500 MG (TUMS) CHEWABLE TABLET PO SCH (08:49)
[2018-05-03] MEDS: PANTOPRAZOLE IV 40 MG VIAL IVP SCH (08:49)
[2018-05-03] MEDS: BuPROPion SR Tab 150 MG TAB PO SCH (08:49)
[2018-05-03] MEDS: LOSARTAN 50 MG TABLET PO SCH (08:49)
[2018-05-03] MEDS: Calcium/Vit D 600mg/400u Tab 1 TAB TABLET PO SCH (08:49)
[2018-05-03] MEDS: Propranolol Tab 10 MG TAB PO SCH (08:49)
--- NOTE | 2018-05-03 10:04 | DCSUMMARY ---
Hospitalization Summary Admit Date: 04/30/2018 Discharge Date: 05/03/18 Hospital Course: Discharge diagnoses 1. Acute pancreatitis likely secondary to alcohol 2. Hypertriglyceridemia may be secondary to alcohol 3. History of depression 4. History of chronic neck pain 5. History of endometriosis 6. History of hypertension 7. Hypomagnesemia 8. Hypocalcemia Hospital course This is a 43 years old female with medical history significant for history of depression, possible extensor disorder, chronic neck pain and history of admission before abdominal pain that developed in the morning for admission. The pain was in the mid abdomen was as severe. Because of all the symptoms she came into the ER lipase was elevated about 4000 CT showed pancreatic edema consistent with acute pancreatitis. She drinks may be 10 shots a week. So she was admitted to the hospital were by Dr. Dickerson please see his note. Patient was put on pain medication, IV fluid and initially nothing by mouth. She is also on estrogen hormonal replacement therapy and that was discontinued. Gradually there was improvement in her symptoms and improvement in her lipase. I saw her later on during hospital stay we advanced her diet to a clear liquid diet and then to fat restricted diet. On the day of discharge she was feeling better abdomen was benign there was no tenderness. She tolerated diet and we thought that she can be discharged home and follow-up with her primary. Initially she did need some oxygen but on the day of discharge her saturation remained above 90 at rest and also with walking. She did have hypomagnesemia that was replaced. Also calcium was low so she was put on some calcium replacement. Triglyceride was elevated but was less than 500 and this was initially done when she came in I think this need to be repeated in a month's time if it still high then I think she needs to be on medication. Her hormonal replacement was also discontinued. Heart to say whether that late part and it without some case reports although my belief it's more alcohol-induced. If she absolutely nec essity need to be on replacement I think she need careful outpatient monitoring if it is reinstituted. Laboratory Results 05/03/18 05/03/18 04:20 04:20 Sodium 135 Potassium 3.5 L Chloride 107 Carbon Dioxide 28 Anion Gap 0 L BUN 4 L Creatinine 0.5 Estimated GFR > 60 BUN/Creatinine Ratio 8.00 Glucose 87 Calculated Osmolality 275.0 Calcium 6.6 L Magnesium 1.6 Total Bilirubin 0.7 AST 50 H ALT 21 Alkaline Phosphatase 119 Total Protein 4.6 L Albumin 2.4 L Globulin 2.2 L Albumin/Globulin Ratio 1.00 L Lipase 398 H Discharge instruction Diet regular Activity as tolerated Medications Current Medication(s) Medication Instructions Recorded Confirmed Type Bupropion HCl [Wellbutrin Sr] 150 mg ORAL BID tab 03/24/11 04/30/18 History Multivitamin Tab [Thera Tab] 1 tab PO DAILY tab 07/29/15 04/30/18 Rx Omeprazole 1 tab PO DAILY tab 08/07/15 04/30/18 History Ibuprofen 800 mg PO QID #120 tab 06/18/16 04/30/18 Rx Ziprasidone HCl [Geodon] 60 mg PO DAILY cap 07/21/16 04/30/18 History carisoprodol 350 mg tablet 350 mg PO TID #30 tab 06/02/17 04/30/18 Rx estradiol 0.5 mg tablet 0.5 mg PO DAILY #90 tab 10/22/17 04/30/18 Rx losartan 100 mg tablet 100 mg PO QDAY #30 tab 11/22/17 04/30/18 Rx Propranolol HCl 20 mg PO DAILY 04/30/18 04/30/18 History Calcium/Vit D 600mg/400u Tab 1 tab PO BID tab 05/03/18 Rx [Calcium 600mg + D 400u Tab] Magnesium Oxide [Mag-Ox] 400 mg PO C BK #20 tab 05/03/18 Rx Follow-up with PCP in 1-2 weeks Condition at discharge was stable for discharge Exam - Vitals Vital Signs: Vital Signs Temperature 97.3 F Temperature Source Temporal Artery Scan Pulse Rate [Pulse Oximeter 77 Left] Pulse Rate 81 Respiratory Rate 17 Blood Pressure [Right Arm] 146/91 Blood Pressure 146/81 Pulse Ox 93 Oxygen Flow Rate 1 Oxygen Delivery Method Nasal Cannula Height 5 ft 2 in Weight 186 lb 3.2 oz - General General Appearance: No Acute Distress, Cooperative - Head Head Exam: Normal Inspection - Eye Eye Exam: POSITIVE: Normal Appearance - ENT ENT Exam: POSITIVE: Normal Exam - Neck Neck Exam: Normal Inspection - Respiratory Respiratory Exam: POSITIVE: Clear to Auscultation - Bilaterally - Cardiovascular Cardiovascular Exam: POSITIVE: RRR - GI/Abdominal GI/Abdominal Exam: POSITIVE: Normal Bowel Sounds, Non Tender, Non Distended, Soft, No Organomegaly - Rectal Rectal Exam: POSITIVE: Deferred - External Exam: POSITIVE: Deferred - Extremities Extremities Exam: POSITIVE: Normal Inspection - Back Back Exam: POSITIVE: Normal Inspection - Neurological Neurological Exam: POSITIVE: Alert, Oriented x 3, CN II-XII Intact, No Facial Droop, Speech Intact / Clear - Psychiatric Psychiatric Exam: POSITIVE: Normal Affect Patient Problems - Patient Problem List (1) Acute pancreatitis Current Visit: Yes Status: Acute Code(s): K85.90 - Acute pancreatitis without necrosis or infection, unspecified Qualifiers: Pancreatitis type: unspecified pancreatitis type Acute pancreatitis complication: no infection or necrosis Qualified Code(s): K85.90 - Acute pancreatitis without necrosis or infection, unspecified Category: Medical (2) Depression Current Visit: Yes Status: Chronic Code(s): F32.9 - Major depressive disorder, single episode, unspecified Qualifiers: Depression Type: other depression Qualified Code(s): F32.89 - Other specified depressive episodes Category: Medical (3) Alcoholism Current Visit: Yes Status: Acute Code(s): F10.20 - Alcohol dependence, uncomplicated Category: Medical (4) Chronic neck pain Current Visit: Yes Status: Acute Code(s): M54.2 - Cervicalgia; G89.29 - Other chronic pain Category: Medical (5) Hypocalcemia Current Visit: Yes Status: Acute Code(s): E83.51 - Hypocalcemia Category: Medical (6) Hypertension Current Visit: Yes Status: Acute Code(s): I10 - Essential (primary) hypertension Category: Medical
[2018-05-03 11:19] VITALS: BP 118/74; RESP 18; TEMP 97.6; O2SAT 92
== END 2018-05-03 11:38 | disposition home or self-care (01) | DRG 440 ==
LOC: ER 18:18 → MED/SURG 20:53
PROVIDERS: ADMIT Family Medicine; ATTEND Family Medicine